=== PATIENT | female | born 1940 | race Hispanic/Latino ===

== ENCOUNTER 2024-04-15 21:46 | Emergency (ER) | payer MEDICAID ==
[2024-04-15 22:15] VITALS: RESP 18; TEMP 97.1; O2SAT 99
--- NOTE | 2024-04-15 22:20 | ERPHSYRPT ---
- History of Present Illness Time Seen by Provider: 04/15/24 22:10 Source: patient, family Exam Limitations: no limitations Patient Subjective Stated Complaint: pt states she has had a wound on her lt foot from dropping an oxygen tank on it that has been getting worse. Triage Nursing Assessment: pt alert and oriented, answers questions approp. pt back to room per wheelchair, transfers to stretcher with assist of 2. respirations nonlabored. skin warm and dry. wound to top of lt foot with redness around. small open area to medial lt lower leg. Physician History: 83yo f presents via private vehicle w/ granddaughter for left foot swelling after dropping her oxygen tank on her foot 3d ago (04/13/24). Pt reports minimal pain in the foot, is able to ambulate w/ walker which is her baseline. Pt reports there is a small wound on the top of her foot, reports feeling some throbbing in the foot as well, denies any fevers or drainage from the wound, denies any pain in the knee, ankle or LE. Method of Injury: other Occurred: days ago (3) Quality: aching, throbbing Severity of Pain-Max: mild Severity of Pain-Current: mild Lower Extremities Pain: foot: left Modifying Factors: Improves With: nothing Associated Symptoms: none Allergies/Adverse Reactions: No Known Drug Allergies Allergy (Verified 04/15/24 22:33) Hx Tetanus, Diphtheria Vaccination/Date Given: No (unsure) Hx Influenza Vaccination/Date Given: No Hx Pneumococcal Vaccination/Date Given: No Immunizations Up to Date: No Travel Risk - International Travel Have you traveled outside of the country in past 3 weeks: No - Emerging Infectious Disease Are you exhibiting symptoms associated with any current EIDs: No - Review of Systems Constitutional: No Symptoms Respiratory: No Symptoms Cardiac: No Symptoms Musculoskeletal: Injury, No Deformity, No Joint Pain, No Joint Swelling Skin: Skin Lesions - Past Medical History Pertinent Past Medical History: Yes Cardiac History: Hypertension Respiratory History: Asthma, COPD Endocrine Medical History: Diabetes Type II Other Medical History: pt is a poor historian - Past Surgical History Past Surgical History: Yes Female Surgical History: Hysterectomy Other Surgical History: poor historian - Social History Smoking Status: Never smoker Exposure to second hand smoke: Yes Drug Use: none - Social Determinants of Health Will the patient participate in the screening: Declined to provide - Nursing Vital Signs Nursing Vital Signs: Initial Vital Signs Temperature 97.1 F 04/15/24 21:53 Pulse Rate 103 H 04/15/24 21:53 Respiratory Rate 18 04/15/24 21:53 Blood Pressure 163/71 04/15/24 21:53 O2 Sat by Pulse Oximetry 99 04/15/24 21:53 Pain Scale Pain Intensity 8 - Physical Exam General Appearance: no apparent distress, alert Cardiovascular/Respiratory Exam: chest non-tender, normal breath sounds, heart sounds normal, no respiratory distress Legs Exam: left leg: abrasions (minimal abrasion superior to medial malleolous ), bilateral leg: non-tender, normal inspection, normal range of motion, no evidence of injury Foot Exam: right foot: non-tender, normal inspection, normal range of motion, no evidence of injury, left foot: abrasions/lacerations (1cm wound, clean, no drainage, no bleeding, no odor, minimall swelling and bruising in region just proximal to 3rd and 4th toes, mild erythema of skin of dorsum of foot) Mental Status Exam: alert, oriented x 3, cooperative SpO2 Interpretation: normal SpO2: 99 O2 Delivery: Nasal Cannula Ordered Tests: Active Orders 24 hr Category Date Time Status FOOT (MINIMUM 3 VIEWS) Stat Exams 04/15/24 22:18 Taken Medication Summary Discontinued Medications Generic Name Dose Route Start Last Admin Trade Name Arlette PRN Reason Stop Dose Admin Acetaminophen 975 mg 04/15/24 22:32 04/15/24 22:38 Acetaminophen 325 Mg Tablet PO 04/15/24 22:33 975 mg STAT ONE Administration Acetaminophen Confirm 04/15/24 22:35 Acetaminophen 325 Mg Tablet Administered 04/15/24 22:36 Dose 975 mg .ROUTE .STK-MED ONE - Progress Progress: improved, pain not gone completely Progress Note: 04/15/24 22:47 pt given tylenol w/ improvement in discomfort xr foot negative for fx concern for very mild cellulitis based on erythema and warmth of skin small wound dressed w/ bacitracin, 4x4 gauze, coband instructed to continue use of antibiotic ointment at home instructed to follow up w/ podiatry Dr Berry on 04/18/24 at walk-in clinic will send course of doxycycline for concern of possible early cellulitis can continue to use tylenol/ibuprofen for pain, can continue to use gauze and coband for bandaging return to ED if: develop pain that does not resolve w/ tylenol, become unable to bare weight, develop fevers or oozing from wound Counseled pt/family regarding: need for follow-up, rad results Medical Desision Making - Diagnostic Testing Diagnostic test were ordered, analyzed, and reviewed by me: Yes Radiological Interpretation: Interpreted by me, Reviewed by me - Departure Departure Disposition: Home Clinical Impression: Wound of left foot Condition: Stable Critical Care Time: No Referrals: NARCISA KELSEY [Primary Care Provider] - Follow up/PCP as directed Additional Instructions: instructed to continue use of antibiotic ointment at home instructed to follow up w/ podiatry Dr Berry on 04/18/24 at walk-in clinic will send course of doxycycline for concern of possible early cellulitis can continue to use tylenol/ibuprofen for pain, can continue to use gauze and coband for bandaging return to ED if: develop pain that does not resolve w/ tylenol, become unable to bare weight, develop fevers or oozing from wound
[2024-04-15] MEDS ORDERED: TYLENOL 325 MG ONE (22:35)
[2024-04-15] MEDS: TYLENOL 325 MG PO ONE (22:38)
[2024-04-15] MEDS ORDERED: BACIGUENT PACKET ONE (22:47)
[2024-04-15 22:56] VITALS: BP 143/84; PULSE 97
--- NOTE | 2024-04-16 07:39 | XRAY ---
Indication: Wound. Pain. Comparison: None 3 nonweightbearing views left foot demonstrates mild soft tissue swelling/subcutaneous emphysema anterior mid foot presumed known wound. Elsewhere osteopenia, mild 1st MTP bunion deformity, and tiny heel spurs. No other bony, articular, or soft tissue abnormalities.
== END 2024-04-15 23:05 | disposition home or self-care (01) ==
LOC: ED 21:46
DX: S91.302A Unspecified open wound, left foot, initial encounter (principal); W20.8XXA Other cause of strike by thrown, projected or falling object, initial encounter; I10 Essential (primary) hypertension; E11.9 Type 2 diabetes mellitus without complications
CPT/HCPCS: 73630; 99282; A9270-GY